=== PATIENT | female | born 1975 ===

== ENCOUNTER → 2018-02-17 21:12 | Outpatient (REF) | payer OTHER, SELFPAY ==
[2018-02-18 01:28] LABS: Free T4, Direct Thyroxine 1.33 ng/dL (0.78-2.19)
[2018-02-18 01:57] LABS: Vitamin B12 625 pg/mL (239-931)
[2018-02-19 15:37] LABS: Triiodothyronine T3 Total 92 ng/dL (76-181)
== END ==
LOC: LAB 21:12
PROVIDERS: Visit Provider Family Medicine
DX: E03.9 Hypothyroidism, unspecified (principal); E53.8 Deficiency of other specified B group vitamins
CPT/HCPCS: 36415; 82607; 84439; 84443; 84480